=== PATIENT | female | born 1990 | race American Indian/Alaskan Native ===

== ENCOUNTER 2021-06-23 07:37 | Inpatient (IN) | payer OTHER, MEDICAID ==
[2021-06-23] MEDS ORDERED: Citric Acid/Sodium Citrate Solution 30 ML Cup PO ONE (08:23)
[2021-06-23] MEDS ORDERED: ceFAZolin 2 GM in Premix Bag 1 BAG IV ONE (08:23)
[2021-06-23] MEDS ORDERED: Methylergonovine 0.2 MG/1 ML Amp IM PRN (08:24)
[2021-06-23] MEDS ORDERED: ePHEDrine 50 MG/ML SDV IVPUSH PRN (08:24)
[2021-06-23] MEDS ORDERED: Ondansetron 4 MG/2 ML SDV IVPUSH PRN (08:24)
[2021-06-23] MEDS ORDERED: diphenhydrAMINE 50 MG/ML SDV IVPUSH PRN (08:24)
[2021-06-23] MEDS ORDERED: Naloxone 2 MG/2 ML Syringe IVPUSH PRN (08:24)
[2021-06-23] MEDS ORDERED: Carboprost Tromethamine 250 MCG/1 ML Amp IM PRN (08:24)
[2021-06-23] MEDS ORDERED: Misoprostol 400 MCG (4 X 100 MCG TAB) RECTAL PRN (08:24)
[2021-06-23] MEDS ORDERED: Tranexamic Acid 1,000 MG in Sodium Chloride 0.9% 100 ML IV PRN (08:24)
[2021-06-23] MEDS: Lactated Ringers 1,000 ML IV SCH ×5 (08:30→22:25)
[2021-06-23] MEDS ORDERED: Oxytocin/Normal Saline 60 UNIT/1,000 ML BAG ONE (09:13)
[2021-06-23] MEDS ORDERED: Oxytocin/Normal Saline 30 UNIT/500 ML BAG IV SCH (10:45)
[2021-06-23] MEDS ORDERED: Acetaminophen/oxyCODONE 325-5 MG Tab PO PRN ×2 (12:00)
[2021-06-23 12:30] LABS: AMPHETAMINES,URINE NEGATIVE (NEGATIVE); BARBITURATES,URINE NEGATIVE (NEGATIVE); BENZODIAZEPINE,URINE NEGATIVE (NEGATIVE); MDMA (ECSTASY), URINE NEGATIVE (NEGATIVE); METHADONE,URINE NEGATIVE (NEGATIVE); METHAMPHETAMINES,URINE NEGATIVE (NEGATIVE); OPIATES,URINE NEGATIVE (NEGATIVE); OXYCODONE,URINE NEGATIVE (NEGATIVE); PHENCYCLIDINE,URINE NEGATIVE (NEGATIVE); TCA,URINE NEGATIVE (NEGATIVE)
[2021-06-23] MEDS ORDERED: Oxytocin/Normal Saline 30 UNIT/500 ML BAG IV ONE (15:57)
[2021-06-23] MEDS: Ketorolac 30 MG/ML SDV IVPUSH SCH ×2 (16:52→22:21)
[2021-06-23] MEDS: Simethicone 80 MG Tab.Chew PO SCH ×2 (16:53→22:21)
[2021-06-23] MEDS: Docusate Sodium 100 MG Cap PO PRN (22:21)
[2021-06-24] MEDS: Ketorolac 30 MG/ML SDV IVPUSH SCH (04:45)
[2021-06-24] MEDS: Lactated Ringers 1,000 ML IV SCH (06:00)
[2021-06-24] MEDS: Simethicone 80 MG Tab.Chew PO SCH ×4 (08:44→21:47)
[2021-06-24] MEDS: Prenatal Multivitamin with Calcium/Folic Acid/Iron Tab PO SCH (08:44)
[2021-06-24] MEDS: Docusate Sodium 100 MG Cap PO PRN ×2 (08:45→21:47)
[2021-06-24] MEDS: Ibuprofen 800 MG Tab PO PRN (14:18)
[2021-06-25] MEDS: Prenatal Multivitamin with Calcium/Folic Acid/Iron Tab PO SCH (09:47)
[2021-06-25] MEDS: Ibuprofen 800 MG Tab PO PRN ×2 (09:47→18:04)
[2021-06-25] MEDS: Docusate Sodium 100 MG Cap PO PRN (09:48)
[2021-06-25] MEDS: Simethicone 80 MG Tab.Chew PO SCH ×4 (09:48→23:53)
[2021-06-25] MEDS ORDERED: ePHEDrine 50 MG/ML SDV IV ONE (11:55)
[2021-06-25] MEDS ORDERED: Ketorolac 30 MG/ML SDV IVPUSH ONE (11:55)
[2021-06-25] MEDS ORDERED: Ondansetron 4 MG/2 ML SDV IV ONE (11:55)
[2021-06-25] MEDS ORDERED: Dexamethasone 4 MG/ML SDV IV ONE (11:55)
[2021-06-25] MEDS ORDERED: Morphine PF 10 MG/10 ML SDV ONE (11:55)
[2021-06-25] MEDS: Acetaminophen 325 MG Tab PO PRN (19:56)
[2021-06-26] MEDS: Ibuprofen 800 MG Tab PO PRN ×2 (02:13→10:12)
[2021-06-26] MEDS: Acetaminophen 325 MG Tab PO PRN (06:24)
[2021-06-26] MEDS: Prenatal Multivitamin with Calcium/Folic Acid/Iron Tab PO SCH (10:12)
[2021-06-26] MEDS: Simethicone 80 MG Tab.Chew PO SCH (10:12)
== END 2021-06-26 11:50 | disposition home or self-care (01) | DRG 787 ==
LOC: DL.OBCHECK 07:37 → DL.OB 08:24 → OBSVTOIN 09:59 → DL.OB 09:59 → MERGE 09:59 → DL.MS 06-24 11:45
PROVIDERS: ADMIT Family Medicine; ATTEND Family Medicine
PROC: 10D00Z1 Extraction of Products of Conception, Low, Open Approach (ICD-10-PCS; principal; 2021-06-23)
PROC: 4A1HXCZ Monitoring of Products of Conception, Cardiac Rate, External Approach (ICD-10-PCS; 2021-06-23)
DX: O34.211 Maternal care for low transverse scar from previous cesarean delivery (principal); D62 Acute posthemorrhagic anemia; O69.81X0 Labor and delivery complicated by cord around neck, without compression, not applicable or unspecified; Z3A.39 39 weeks gestation of pregnancy; Z37.0 Single live birth; O99.02 Anemia complicating childbirth; G47.30 Sleep apnea, unspecified; Z20.822 Contact with and (suspected) exposure to COVID-19
CPT/HCPCS: 36415; 80305-QW; 85027; 86850; 86900; 86901; A9270-GY; J0690; J1100; J1885; J2270; J2405; J2590; J7120; U0002

== ENCOUNTER 2021-09-08 12:07 | Emergency (ER) | payer BC, OTHER ==
[2021-09-08] MEDS ORDERED: Sodium Chloride 0.9% 10 ML Syringe FLUSH PRN (12:09)
[2021-09-08] MEDS ORDERED: Famotidine 20 MG/2 ML SDV IVPUSH ONE (12:09)
[2021-09-08] MEDS ORDERED: methylPREDNISolone Sodium Succinate 125 MG/2 ML SDV IVPUSH ONE (12:09)
[2021-09-08] MEDS ORDERED: diphenhydrAMINE 50 MG/ML SDV IVPUSH ONE (12:09)
[2021-09-08] MEDS ORDERED: Famotidine 20 MG Tab PO ONE (13:04)
[2021-09-08] MEDS ORDERED: Famotidine 20 MG Tab ONE (13:06)
[2021-09-08] MEDS ORDERED: EPINEPHrine 1 MG/ML SDV IM ONE (13:49)
[2021-09-08] MEDS ORDERED: diphenhydrAMINE 50 MG Cap PO ONE (13:49)
== END 2021-09-08 14:05 | disposition home or self-care (01) ==
LOC: DL.ED 12:07
DX: L50.0 Allergic urticaria (principal); E66.9 Obesity, unspecified; Z68.30 Body mass index [BMI] 30.0-30.9, adult
CPT/HCPCS: 96372; 96374; 96375; 99282; 99284; A9270; J0171; J1200; J2930; Q0163